=== PATIENT | female | born 1980 ===

== ENCOUNTER 2024-12-15 12:40 | Emergency (ER) | payer SELFPAY ==
[2024-12-15 12:40] VITALS: BP 136/73; PULSE 99; RESP 18; TEMP 36.8; O2SAT 100; BMI 29.1
== END 2024-12-15 14:10 | disposition left against medical advice (07) ==
LOC: ED 14:15
DX: Z53.21 Procedure and treatment not carried out due to patient leaving prior to being seen by health care provider (principal)